=== PATIENT | male | born 1990 | race Caucasian/White ===

== ENCOUNTER 2017-03-06 06:06 | Emergency (ER) | payer SELFPAY ==
[~2017-03-06] VITALS: Ht 172.7 cm; Wt 104.3 kg
[~2017-03-06 06:06] MED LIST: CEPH500 PO; CRUTCH3 USE; CYCL10 PO; HYDACE25S PR; HYDACE5 PO; HYDR1TAB94 PO; IBUP800 PO; LOPE2C PO; NAPR500 PO; NAPR550 PO; ONDA4 PO; OXYACE5T PO; PRED20 PO; PROM25 PO; Percocet 5-3251 EACH PO; Prednisone20 MG PO; RXOXYACE PO
[2017-03-06] MEDS ORDERED: Percocet 5-3251 EACH PO (07:48)
== END 2017-03-06 07:54 | disposition home or self-care (01) ==
LOC: ER 06:06
DX: S46.911A Strain of unspecified muscle, fascia and tendon at shoulder and upper arm level, right arm, initial encounter (principal); S39.012A Strain of muscle, fascia and tendon of lower back, initial encounter; V47.5XXA Car driver injured in collision with fixed or stationary object in traffic accident, initial encounter; Z87.891 Personal history of nicotine dependence
CPT/HCPCS: 72100; 73030; 99283

== ENCOUNTER 2018-09-17 18:50 | Emergency (ER) | payer OTHER ==
[~2018-09-17] VITALS: Ht 172.7 cm; Wt 104.3 kg
== END 2018-09-17 20:06 | disposition home or self-care (01) ==
LOC: ER 18:50
DX: T16.1XXA Foreign body in right ear, initial encounter (principal); I10 Essential (primary) hypertension; F17.220 Nicotine dependence, chewing tobacco, uncomplicated
CPT/HCPCS: 99282

== ENCOUNTER 2021-09-16 23:33 | Emergency (ER) | payer OTHER ==
[~2021-09-16] VITALS: Ht 175.3 cm; Wt 106.6 kg
[2021-09-17] MEDS ORDERED: TRAM50 PO (00:22)
== END 2021-09-17 00:40 | disposition home or self-care (01) ==
LOC: ER 23:33
DX: M25.531 Pain in right wrist (principal); I10 Essential (primary) hypertension; F17.220 Nicotine dependence, chewing tobacco, uncomplicated
CPT/HCPCS: 73110; 99283-25; J1885

== ENCOUNTER 2022-01-02 18:48 | Emergency (ER) | payer OTHER ==
[~2022-01-02] VITALS: Ht 172.7 cm; Wt 99.8 kg
[~2022-01-02 18:48] MED LIST changes: +TRAM50 PO
== END 2022-01-02 19:40 | disposition home or self-care (01) ==
LOC: ER 18:48
DX: S63.501A Unspecified sprain of right wrist, initial encounter (principal); W18.30XA Fall on same level, unspecified, initial encounter; I10 Essential (primary) hypertension; F17.220 Nicotine dependence, chewing tobacco, uncomplicated
CPT/HCPCS: 73110

== ENCOUNTER 2023-11-24 05:49 | Emergency (ER) | payer OTHER ==
[~2023-11-24] VITALS: Ht 172.7 cm; Wt 127.0 kg
[~2023-11-24 05:49] MED LIST changes: +OXYC5 PO
[2023-11-24 07:05] VITALS: BP 134/102
== END 2023-11-24 07:05 | disposition home or self-care (01) ==
LOC: ER 05:49
DX: T81.31XA Disruption of external operation (surgical) wound, not elsewhere classified, initial encounter (principal); Y83.8 Other surgical procedures as the cause of abnormal reaction of the patient, or of later complication, without mention of misadventure at the time of the procedure; F17.220 Nicotine dependence, chewing tobacco, uncomplicated
CPT/HCPCS: 99282

== ENCOUNTER → 2024-02-14 | Outpatient (CLI) | payer OTHER | LOC: LAB SHORT 09:15 → LAB 09:15 | DX: Z98.52 Vasectomy status (principal) ==

== ENCOUNTER 2024-12-14 19:20 | Emergency (ER) | payer OTHER ==
[~2024-12-14] VITALS: Ht 172.7 cm; Wt 117.9 kg
[2024-12-14] MEDS ORDERED: ZYRTEC10 M2 PO (20:08)
[2024-12-14] MEDS ORDERED: OMEP20ER PO (20:08)
[2024-12-14] MEDS ORDERED: Morphine Sulfate 4 MG/1 ML Injection IV ONE (20:30)
[2024-12-14] MEDS ORDERED: IBUP600 PO (21:26)
[2024-12-14 21:30] VITALS: BP 159/99
== END 2024-12-14 21:33 | disposition home or self-care (01) ==
LOC: ER 19:20
DX: S16.1XXA Strain of muscle, fascia and tendon at neck level, initial encounter (principal); S29.012A Strain of muscle and tendon of back wall of thorax, initial encounter; S39.012A Strain of muscle, fascia and tendon of lower back, initial encounter; F17.220 Nicotine dependence, chewing tobacco, uncomplicated; V89.2XXA Person injured in unspecified motor-vehicle accident, traffic, initial encounter
CPT/HCPCS: 70450; 72125; 72128; 72131; 96374; 99285-25; J2270